=== PATIENT | female | born 1965 | race Caucasian/White ===

== ENCOUNTER 2018-12-05 09:05 | Outpatient (CLI) | payer OTHER, SELFPAY ==
[2018-12-05] MEDS ORDERED: Iopamidol 370 76% 100 ML VIAL ONE (10:02)
--- NOTE | 2018-12-05 10:26 | CT ---
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 COMPARISON: None. FINDINGS: The lungs are clear of any infiltrative process there is gravity dependent atelectasis seen . There are no pulmonary nodules identified. There are small mediastinal lymph nodes slightly more numerous than typically seen the largest of the se is a right paratracheal node which measures 12.7 mm. Some small aorticopulmonary nodes are are present larger one of these is 10 mm. There is no significant axillary adenopathy and no significant hilar adenopathy. CT of abdomen performed with contrast enhancement: There are tiny hypodensities in the dome of the li zia most compatible with cysts. Liver shows suggestion of some very mild fatty change. The spleen is within normal limits. The pancreas region is unremarkable. The gallbladder is filled with gallston es. Right and left adrenal glands and right and left kidneys are normal in size. There is no significant periaortic or mesenteric adenopathy. CT of pelvis performed with contrast enhancement: Is no evidence of adenopathy, mass or free fluid. R eview of osseous structures show no signs for metastatic disease. IMPRESSION: 1. Borderline prominent right paratracheal and aorticopulmonary window nodes. Not definitely enlarged by size criteria. PET scan may be helpful in excluding the possibility of this representing metastatic disease although considered unlikely. 2. Gallstones.
== END 2018-12-05 09:06 | disposition home or self-care (01) ==
LOC: CT 09:05
PROVIDERS: ATTEND Plastic Surgery
DX: C49.9 Malignant neoplasm of connective and soft tissue, unspecified (principal); K80.20 Calculus of gallbladder without cholecystitis without obstruction
CPT/HCPCS: 71260; 74177; Q9967